=== PATIENT | male | born 1970 | race Hispanic/Latino ===

== ENCOUNTER 2021-12-23 16:01 | Emergency (ER) | payer BC | END 2021-12-23 17:10 | disposition home or self-care (01) | LOC: ERS 16:01 | DX: M25.561 Pain in right knee (principal) ==

== ENCOUNTER 2022-08-31 17:13 | Emergency (ER) | payer BC ==
[2022-08-31 19:13] LABS: SARS-CoV-2 NAA Rapid Test DETECTED (NotDetected)
== END 2022-08-31 19:27 | disposition home or self-care (01) ==
LOC: ERS 17:13
DX: U07.1 COVID-19 (principal); S00.411A Abrasion of right ear, initial encounter
CPT/HCPCS: 99283

== ENCOUNTER 2023-09-16 14:44 | Outpatient (CLI) | payer BC | END 2023-09-16 14:45 | disposition home or self-care (01) | LOC: BICMRI 14:44 | PROVIDERS: ATTEND Orthopaedic Surgery | DX: M23.92 Unspecified internal derangement of left knee (principal); S83.522A Sprain of posterior cruciate ligament of left knee, initial encounter; S83.512A Sprain of anterior cruciate ligament of left knee, initial encounter; R60.0 Localized edema ==